=== PATIENT | female | born 1980 | race Caucasian/White ===

== ENCOUNTER 2021-10-28 12:57 | Emergency (ER) | payer BC ==
[~2021-10-28] VITALS: Ht 162.6 cm; Wt 61.2 kg
[2021-10-28] MEDS ORDERED: PEPCID40 MG PO (13:10)
[2021-10-28] MEDS ORDERED: LEVO-T100 MCG PO (13:10)
[2021-10-28] MEDS ORDERED: LINZESS72 MCG PO (13:11)
[2021-10-28 14:07] LABS: ABSOLUTE BASOPHILS 0.1 thou/uL (0.0-0.2); ABSOLUTE LYMPHOCYTES 1.2 thou/uL (0.8-5.3); ABSOLUTE NEUTROPHILS 7.7 thou/uL (1.6-8.1); BASOPHILS 0.5 %; EOSINOPHILS 0.1 %; HEMATOCRIT 36.2 % (37.0-47.0); HEMOGLOBIN 12.4 gm/dL (12.0-15.0); LYMPHOCYTES 12.4 %; MCH 29.9 pg (26.0-34.0); MCHC 34.2 g/dL (28.0-37.0); MCV 87.6 fL (80.0-100.0); MONOCYTES 10.2 %; MPV 8.7 fl. (7.2-11.1); NUCLEATED RBCS 0 /100WBC; PLATELET COUNT* 237 thou/uL (150-400); POLYS 76.8 %; RBC 4.13 mil/uL (4.20-5.00); RDW-CV 12.8 % (10.5-14.5)
[2021-10-28 14:14] LABS: CALCIUM 8.5 mg/dL (8.5-10.1); CREATININE 0.7 mg/dL (0.6-1.3); POTASSIUM 3.9 mmol/L (3.5-5.1)
[2021-10-28 14:20] LABS: ALBUMIN 3.7 g/dL (3.4-5.0); TOTAL BILIRUBIN 0.4 mg/dL (<0.1-1.0); TOTAL PROTEIN 6.6 g/dL (6.4-8.2)
[2021-10-28] MEDS ORDERED: CEPHALEXIN500 MG PO (15:33)
[2021-10-28] MEDS ORDERED: FLEXERIL PO (15:33)
[2021-10-28] MEDS ORDERED: HYDROCODON-ACE1 EAC7 PO (15:34)
[2021-10-28] MEDS ORDERED: DIFLUCAN150 M1 PO (15:40)
[2021-10-28 15:49] VITALS: BP 114/68
== END 2021-10-28 15:50 | disposition home or self-care (01) ==
LOC: M.ERS 12:57
PROVIDERS: Nurse Practitioner Family
DX: S02.2XXA Fracture of nasal bones, initial encounter for closed fracture (principal); S16.1XXA Strain of muscle, fascia and tendon at neck level, initial encounter; S06.0X0A Concussion without loss of consciousness, initial encounter; E03.9 Hypothyroidism, unspecified; Z79.899 Other long term (current) drug therapy; Z88.2 Allergy status to sulfonamides; Y08.89XA Assault by other specified means, initial encounter; Y93.89 Activity, other specified; Y92.89 Other specified places as the place of occurrence of the external cause; Y99.8 Other external cause status